=== PATIENT | female | born 1960 | race Caucasian/White ===

== ENCOUNTER 2016-12-06 10:51 | Emergency (ER) | payer OTHER ==
[~2016-12-06 10:51] MED LIST: ABILIFY; BP MED; CELEXA PO; DCN100 PO; DSS PO; FLAG500TAB PO; JANUVIA50 PO; KLONO1 PO; KLONO5 PO; LEVAQUIN750 MG PO; LORT2.5 PO; LORTAB 5 PO; LORTAB10 PO; MIRAPEX250 PO; NEUR300 PO; NEUR600 PO; NORCO1 TA1 PO; NORCO1 TA2 PO; P20 PO; PROAIR HFA INH; PROVHFA INH; REQUIP PO; REQUIP2 PO; SYMBICORT 160/41 INH INH; SYNTHROID137 MCG PO; T PO; V5 PO; VENTOLIN HFA INH; ZESTORETIC PO; ZESTRIL20 MG PO; [UNRECOGNIZED DRUG - REMARK]
== END 2016-12-06 17:27 | disposition home or self-care (01) ==
LOC: ER 10:51
DX: S29.011A Strain of muscle and tendon of front wall of thorax, initial encounter (principal); F17.200 Nicotine dependence, unspecified, uncomplicated; J44.9 Chronic obstructive pulmonary disease, unspecified; I10 Essential (primary) hypertension; Z90.710 Acquired absence of both cervix and uterus; Z88.8 Allergy status to other drugs, medicaments and biological substances; Z79.899 Other long term (current) drug therapy; X58.XXXA Exposure to other specified factors, initial encounter
CPT/HCPCS: 99284